=== PATIENT | male | born 1975 | race Caucasian/White ===

== ENCOUNTER 2022-06-21 08:11 | Inpatient (IN) | payer BC ==
[2022-06-21] MEDS ORDERED: Ondansetron PF 4 MG/2 ML Vial IVP PRN (09:22)
[2022-06-21] MEDS ORDERED: Acetaminophen 325 MG TAB PO PRN (09:22)
[2022-06-21] MEDS ORDERED: HYDROcodone/Acetaminophen 5/325 mg Tablet PO PRN (09:22)
[2022-06-21 10:24] LABS: CKMB 2.7 ng/mL (0-6.6)
[2022-06-21 10:31] VITALS: BMI 30.2
[2022-06-21 10:44] LABS: Hemoglobin A1c 5.2 % (4.0-6.0)
[2022-06-21 11:01] LABS: Cardiac Risk 4.7 (Less than 4.5)
[2022-06-21 13:12] LABS: Troponin I 0.442 ng/mL (< 0.028)
[2022-06-21] MEDS: Enoxaparin Sodium 100 MG/ML SYRINGE SC SCH (20:05)
[2022-06-21] MEDS ORDERED: Atorvastatin Calcium 40 MG TAB PO SCH (21:00)
[2022-06-22 06:10] LABS: ALT (SGPT) 23 U/L (8-55); AST (SGOT) 19 U/L (5-34); Albumin 3.8 g/dL (3.5-5.0); Alkaline Phosphatase 61 U/L (40-110); Anion Gap 13 mmol/L (10-20); BUN (Urea Nitrogen) 15 mg/dL (8.9-20.6); Bilirubin, Total 0.4 mg/dL (0.2-1.2); Calc. Creatinine Clearance 133 mL/min (70-130); Calcium 8.8 mg/dL (7.8-10.44); Carbon Dioxide 24 mmol/L (22-29); Chloride 107 mmol/L (98-107); Estimated GFR 105; Globulin 2.7 g/dL (2.4-3.5); Glucose 94 mg/dL (70-105); Potassium 4.4 mmol/L (3.5-5.1); Protein, Total 6.5 g/dL (6.0-8.3); Sodium 140 mmol/L (136-145)
[2022-06-22] MEDS: Aspirin 81 mg Enteric Coated Tablet PO SCH (08:44)
[2022-06-22] MEDS: Enoxaparin Sodium 100 MG/ML SYRINGE SC SCH (10:04)
[2022-06-22] MEDS ORDERED: Communication Order-Pharmacy FS SCH (10:15)
[2022-06-22] MEDS ORDERED: hydrOXYzine 25 MG TAB PO SCH (21:00)
[2022-06-22] MEDS ORDERED: Atorvastatin Calcium 40 MG TAB PO SCH (21:00)
[2022-06-23] MEDS ORDERED: Sodium Chloride 0.9% 1,000 ML IV SCH ×3 (05:00→10:30)
[2022-06-23] MEDS ORDERED: Nitroglycerin 50 MG/250 ML BOT 250 ML ONE (06:45)
[2022-06-23] MEDS ORDERED: Heparin 10,000 UNITS/ 10 ML VIAL ONE (06:45)
[2022-06-23] MEDS ORDERED: Adenosine 6 MG/2 ML VIAL ONE (06:46)
[2022-06-23] MEDS ORDERED: Verapamil 5 MG/2 ML VIAL ONE (06:46)
[2022-06-23] MEDS ORDERED: Bivalirudin 250 MG VIAL ONE ×2 (06:47→08:57)
[2022-06-23] MEDS ORDERED: Lidocaine 1% MPF 2 ML VIAL ONE ×2 (06:53→07:29)
[2022-06-23] MEDS: Aspirin 81 mg Enteric Coated Tablet PO SCH (06:55)
[2022-06-23] MEDS ORDERED: Fentanyl 100 MCG/2 ML VIAL ONE (07:54)
[2022-06-23] MEDS ORDERED: Midazolam HCl 2 mg/2 ml Vial ONE ×2 (07:54→08:00)
[2022-06-23] MEDS ORDERED: PHENYLEPHRINE-NS 100 MCG/ML 10 ML SYRINGE ONE (08:09)
[2022-06-23] MEDS ORDERED: TICAGRELOR 90 MG TABLET ONE (08:21)
[2022-06-23] MEDS ORDERED: Iopamidol 300 61% 100 ML VIAL FS ONE (15:13)
[2022-06-23] MEDS ORDERED: Rosuvastatin 20 MG TAB PO SCH (15:45)
[2022-06-23 18:05] VITALS: BP 132/74
[2022-06-23 18:10] VITALS: TEMP 97.6
[2022-06-23] MEDS ORDERED: TICAGRELOR 90 MG TABLET PO SCH (21:00)
== END 2022-06-23 18:00 | disposition home or self-care (01) | DRG 247 ==
LOC: CSHTELE 08:11 → OBSVTOIN 06-22 10:01
PROVIDERS: ADMIT Internal Medicine; ATTEND Family Medicine
PROC: 4A023N7 Measurement of Cardiac Sampling and Pressure, Left Heart, Percutaneous Approach (ICD-10-PCS; principal; 2022-06-23)
PROC: 027034Z Dilation of Coronary Artery, One Artery with Drug-eluting Intraluminal Device, Percutaneous Approach (ICD-10-PCS; 2022-06-23)
PROC: 02703ZZ Dilation of Coronary Artery, One Artery, Percutaneous Approach (ICD-10-PCS; 2022-06-23)
PROC: B2111ZZ Fluoroscopy of Multiple Coronary Arteries using Low Osmolar Contrast (ICD-10-PCS; 2022-06-23)
DX: I21.4 Non-ST elevation (NSTEMI) myocardial infarction (principal); K21.9 Gastro-esophageal reflux disease without esophagitis; J45.909 Unspecified asthma, uncomplicated; I10 Essential (primary) hypertension; L30.9 Dermatitis, unspecified; E78.00 Pure hypercholesterolemia, unspecified; F10.20 Alcohol dependence, uncomplicated; I25.10 Atherosclerotic heart disease of native coronary artery without angina pectoris; Z82.49 Family history of ischemic heart disease and other diseases of the circulatory system; Z87.891 Personal history of nicotine dependence; Z71.41 Alcohol abuse counseling and surveillance of alcoholic; Z20.822 Contact with and (suspected) exposure to COVID-19
CPT/HCPCS: 36415; 80053; 80061; 82553; 83036; 84484; 92921; 92928; 92978; 92979; 93306; 93458; 96372; 97139; 99152; 99153; C1725; C1753; C1769; C1874; C1887; C1894; C9600; G0378; J0153; J0583; J1644; J1650; J2250; J3010; J7050; U0003; U0005